=== PATIENT | male | born 1975 | race African-American/Black ===

== ENCOUNTER 2019-07-30 17:51 | Emergency (ER) | payer MEDICARE ==
[~2019-07-30] VITALS: Wt 95.9 kg
[2019-07-30] MEDS ORDERED: HYDROCHLOROT25 MG PO (19:13)
[2019-07-30] MEDS ORDERED: CRESTOR10 MG PO (19:13)
[2019-07-30] MEDS ORDERED: LISINOPRIL2.5 MG PO (19:14)
[2019-07-30] MEDS ORDERED: NOVOLOG100 UNIT/M SC (19:15)
[2019-07-30] MEDS ORDERED: ZPAK PO ×2 (19:28→19:38)
[2019-07-30] MEDS ORDERED: VENTOLIN HFA IN (19:28)
[2019-07-30] MEDS ORDERED: TESSALON PERLE100 MG PO (19:28)
[2019-07-30] MEDS ORDERED: MEDDOSEPAK PO (19:28)
[2019-07-30 19:38] VITALS: BP 116/74
== END 2019-07-30 19:38 | disposition home or self-care (01) ==
LOC: ED 17:51
DX: J06.9 Acute upper respiratory infection, unspecified (principal); J40 Bronchitis, not specified as acute or chronic; E11.9 Type 2 diabetes mellitus without complications; I10 Essential (primary) hypertension; Z79.4 Long term (current) use of insulin